=== PATIENT | male | born 1955 | race American Indian/Alaskan Native ===

== ENCOUNTER 2017-11-18 22:59 | Emergency (ER) | payer MEDICAID, OTHER ==
[2017-11-18] MEDS ORDERED: Ketorolac 30 MG/ML SDV IM ONE (23:24)
[2017-11-19] MEDS ORDERED: Morphine 4 MG/ML Syringe IVPUSH ONE (01:06)
[2017-11-19] MEDS ORDERED: Ondansetron 4 MG/2 ML SDV IV ONE (01:06)
[2017-11-19] MEDS ORDERED: Acetaminophen/HYDROcodone 325-5 MG Tab PO ONE (01:14)
--- NOTE | 2017-11-20 11:08 | ER ---
SUBJECTIVE: The patient is a 62-year-old male who comes in because of some scrotal swelling over the last day or so. He states he woke up with it in the middle of the night and has gotten a little worse today. He has been laying morro and then wearing tight pants and doing quite a bit stuff over the last few days. He denies any dysuria, hematuria, bowel changes, melena, hematochezia, fever, chills, trauma, or abdominal pain. Some mild discomfort along his scrotum, mostly the left testicle area. He denies any other issues. He did take some naproxen by earlier today. PAST MEDICAL HISTORY: Significant for hyperlipidemia, hypertension, prostate disorder, and diabetes, type 2. CURRENT MEDICATIONS: Include: 1. Aspirin 81 mg p.o. daily. 2. Finasteride 5 mg p.o. daily. 3. Lisinopril 10 mg p.o. daily. 4. Naproxen 500 mg p.o. b.i.d. p.r.n. 5. Ditropan XL 10 mg p.o. daily. 6. Amlodipine 10 mg p.o. daily. 7. Lipitor 10 mg p.o. daily. ALLERGIES: He is not allergic to any known medications. SOCIAL HISTORY: He has been smoking for 15 years cigarettes. He does use alcohol daily. No other substance abuse. REVIEW OF SYSTEMS: No fever, chills, chest pain, shortness of breath, abdominal pain, nausea, vomiting, bowel or bladder changes, melena, or hematochezia. No trauma. Please see HPI. PHYSICAL EXAMINATION: Vital Signs: Stable. He is afebrile. General: Pleasant. Normal gait. He is very interactive. Appears in no distress. No respiratory distress. No jaundice. HEENT: Normocephalic and atraumatic. Neck: Unremarkable. Chest: Clear. Cardiovascular: RRR. Abdomen: Soft and benign. Genitourinary: Does show some nonspecific scrotal swelling. The left testicle is mildly more swollen than the right. Does not appear to be torsed. No cellulitis. No abscesses. No bruising or other signs of trauma. LABORATORY AND DIAGNOSTIC DATA: Urinalysis did not show any infection. An ultrasound of his scrotum does show hematoma above the left scrotum, probably traumatic in nature, although the patient does not recall any trauma. There is no infection, signs of abscess or process. ASSESSMENT: Mild scrotal swelling with left testicular hematoma. PLAN: I advised the patient to lie low over the next couple days, allow swelling to reabsorb, no heavy lifting, follow along. Do not wear any tight or constricting clothing. Follow up with his PCP in clinic as needed. [facility] /[id number]
== END 2017-11-19 02:07 | disposition home or self-care (01) ==
LOC: DL.ED 22:59
DX: S30.22XA Contusion of scrotum and testes, initial encounter (principal); F17.210 Nicotine dependence, cigarettes, uncomplicated; Z79.82 Long term (current) use of aspirin; Z79.899 Other long term (current) drug therapy; X58.XXXA Exposure to other specified factors, initial encounter
CPT/HCPCS: 76870; 81001; 93975; 96372; 99284; A9270; J1885

== ENCOUNTER 2018-01-01 21:54 | Emergency (ER) | payer MEDICAID, OTHER ==
--- NOTE | 2018-01-02 00:04 | EDM.PDOC ---
ED HPI GENERAL MEDICAL PROBLEM - General Chief Complaint: Head Injury Stated Complaint: [id number] CONCERN ABOUT A CONCUSSION Time Seen by Provider: 01/01/18 22:00 Source of Information: Reports: Patient History Limitations: Reports: No Limitations - History of Present Illness INITIAL COMMENTS - FREE TEXT/NARRATIVE: States worried that may have concussion. Reports hitting back of head on with trunk of car getting tools out of back. Denied loss of consciousness. Reports had not really thought about being struck in head until Sunday and noted pain to back of head when trying to lie flat. Mild neck discomfort No weakness, tremor or loss of sensation to upper or lower. Admits anxious and sleeping poorly. Headache Pain Score (Numeric/FACES): 9 - Related Data Allergies Allergy/AdvReac Type Severity Reaction Status Date / Time No Known Allergies Allergy Verified 01/01/18 22:01 Home Meds: Home Meds Aspirin [Halfprin] 81 mg PO DAILY 11/18/17 [History] Finasteride 5 mg PO DAILY 11/18/17 [History] Lisinopril 10 mg PO DAILY 11/18/17 [History] Naproxen 500 mg PO BID PRN 11/18/17 [History] Oxybutynin Chloride [Ditropan Xl] 10 mg PO DAILY 11/18/17 [History] amLODIPine Besylate [Amlodipine Besylate] 10 mg PO DAILY 11/18/17 [History] atorvaSTATin [Lipitor] 10 mg PO DAILY 11/18/17 [History] Past Medical History Cardiovascular History: Reports: High Cholesterol, Hypertension Genitourinary History: Reports: Prostate Disorder Endocrine/Metabolic History: Reports: Diabetes, Type II - Past Surgical History Musculoskeletal Surgical History: Reports: Shoulder Surgery, Other (See Below) Other Musculoskeletal Surgeries/Procedures:: left wrist, right ankle surgery Social & Family History - Tobacco Use Smoking Status *Q: Current Every Day Smoker Years of Tobacco use: 17 Packs/Tins Daily: 0.5 Second Hand Smoke Exposure: Yes - Caffeine Use Caffeine Use: Reports: Coffee, Tea - Recreational Drug Use Recreational Drug Use: No ED ROS GENERAL - Review of Systems Review Of Systems: ROS reveals no pertinent complaints other than HPI. ED EXAM, HEAD INJURY - Physical Exam Exam: See Below Exam Limited By: No Limitations General Appearance: Alert, No Apparent Distress, Anxious Head: Atraumatic, Normocephalic, Scalp Tenderness (occipital) Nexus Criteria: No: Posterior, Midline Cervical Tenderness, Evidence of Intoxication, Altered Level of Consciousness, Focal Neurological Deficit Eyes: Bilateral Eye: EOMI Ears: Normal External Exam, Normal TMs. No: Canal Blood, TM Blood, TM Fluid Nose: Normal Inspection Throat/Mouth: Normal Inspection, Normal Lips Neck: Tender Lateral. No: Limited Range of Motion, Spinous Processes Tender, Tender Midline Respiratory: No Respiratory Distress, Lungs Clear, Normal Breath Sounds Cardiovascular: Normal Peripheral Pulses, Regular Rate, Rhythm GI/Abdominal Exam: Normal Bowel Sounds, Soft Rectal (Males) Exam: Normal Exam Extremities: Normal Inspection, Normal Range of Motion Neurologic: No Motor/Sensory Deficits, Alert, Oriented x 3. No: Motor Weakness , Sensory Deficit Skin: Normal Color, Warm/Dry - John Coma Score Best Eye Response (John): (4) Open Spontaneously Best Verbal Response ([place]): (5) Oriented Best Motor Response (John): (6) Obeys Commands Course - Vital Signs Last Recorded V/S: Last Vital Signs Temp 98.8 F 01/01/18 21:57 Pulse 107 H 01/01/18 21:57 Resp 18 01/01/18 21:57 BP 174/70 H 01/01/18 21:57 Pulse Ox 99 01/01/18 21:57 - Radiology Interpretation Free Text/Narrative:: head and cervical negative for acute process, Departure - Departure Time of Disposition: 23:57 Disposition: Home, Self-Care 01 Condition: Good Clinical Impression: Contusion of occipital region of scalp Qualifiers: Encounter type: initial encounter Qualified Code(s): S00.03XA - Contusion of scalp, initial encounter Cervical muscle strain Qualifiers: Encounter type: initial encounter Qualified Code(s): S16.1XXA - Strain of muscle, fascia and tendon at neck level, initial encounter Cervical spondylosis Qualifiers: Spinal osteoarthritis complication: unspecified spinal osteoarthritis Qualified Code(s): M47.812 - Spondylosis without myelopathy or radiculopathy, cervical region - Discharge Information Instructions: Head Injury, Adult, [id number] Referrals: Jorge Nava [Primary Care Provider] - Forms: ED Department Discharge Additional Instructions: rest tylenol or ibuprofen for discomfort follow up with primary care if not improving
== END 2018-01-02 00:06 | disposition home or self-care (01) ==
LOC: DL.ED 21:54
DX: S00.03XA Contusion of scalp, initial encounter (principal); S16.1XXA Strain of muscle, fascia and tendon at neck level, initial encounter; M47.812 Spondylosis without myelopathy or radiculopathy, cervical region; F17.210 Nicotine dependence, cigarettes, uncomplicated; E11.9 Type 2 diabetes mellitus without complications; Z79.899 Other long term (current) drug therapy; Z79.82 Long term (current) use of aspirin; W22.8XXA Striking against or struck by other objects, initial encounter
CPT/HCPCS: 70450; 72125; 99283

== ENCOUNTER 2020-03-23 16:19 | Emergency (ER) | payer MEDICAID ==
--- NOTE | 2020-03-23 16:20 | EDM.PDOC ---
ED HPI GENERAL MEDICAL PROBLEM - General Chief Complaint: Genitourinary Problem Stated Complaint: [place] AM Time Seen by Provider: 03/23/20 16:20 Source of Information: Reports: Patient, EMS, Family (sister), Old Records, Provider, RN, RN Notes Reviewed History Limitations: Reports: No Limitations - History of Present Illness INITIAL COMMENTS - FREE TEXT/NARRATIVE: Pt arrives from [facility] by ambulance sent by [facility] with report of dysuria, and right testicular redness and swelling x1 week. Pt denies abdominal pain, fever, or chills. He admits to suprapubic pressure and mild B/L flank pain. The clinic provider reported the pt had a WBC of 34,000 with no reference to pt's past or baseline WBC. No old records or labs are found here at this hospital and the clinic was closed without an ion implant machine operator provider by the time the pt arrived to the ER. Pt states he otherwise feels well. Pt's sister called to caution that the pt is a chronic alcohol drinker. Onset: Gradual Duration: Week(s): (1) Location: Reports: Other (Right testicle) Quality: Reports: Ache Severity: Moderate Improves with: Reports: None Worsens with: Reports: Movement Associated Symptoms: Reports: No Other Symptoms Right Scrotum Pain Score (Numeric/FACES): 4 - Related Data Allergies Allergy/AdvReac Type Severity Reaction Status Date / Time No Known Allergies Allergy Verified 03/23/20 16:32 Home Meds: Home Meds Aspirin [Halfprin] 81 mg PO DAILY 11/18/17 [History] Finasteride 5 mg PO DAILY 11/18/17 [History] Lisinopril 10 mg PO DAILY 11/18/17 [History] Naproxen 500 mg PO BID PRN 11/18/17 [History] Oxybutynin Chloride [Ditropan Xl] 10 mg PO DAILY 11/18/17 [History] amLODIPine Besylate [Amlodipine Besylate] 10 mg PO DAILY 11/18/17 [History] atorvaSTATin [Lipitor] 10 mg PO DAILY 11/18/17 [History] Thiamine HCl [Vitamin B-1] 03/23/20 [History] Past Medical History HEENT History: Reports: Impaired Vision Cardiovascular History: Reports: High Cholesterol, Hypertension Genitourinary History: Reports: Prostate Disorder Musculoskeletal History: Reports: Osteoarthritis, Other (See Below) (chronic right shoulder pain) Psychiatric History: Reports: Addiction (alcohol) Endocrine/Metabolic History: Reports: Diabetes, Type II - Past Surgical History Musculoskeletal Surgical History: Reports: Shoulder Surgery, Other (See Below) Other Musculoskeletal Surgeries/Procedures:: left wrist, right ankle surgery Social & Family History - Family History Family Medical History: Unobtainable - Caffeine Use Caffeine Use: Reports: Coffee, Tea - Alcohol Use Alcohol Use History: Yes - Living Situation & Occupation Living situation: Reports: with Family Occupation: Unemployed ED ROS GENERAL - Review of Systems Review Of Systems: Comprehensive ROS is negative, except as noted in HPI. ED EXAM, GENERAL - Physical Exam Exam: See Below Exam Limited By: No Limitations General Appearance: Alert, WD/WN, No Apparent Distress Nose: Normal Inspection Throat/Mouth: Normal Inspection, Normal Lips, Normal Voice, No Airway Compromise Head: Atraumatic, Normocephalic Neck: Normal Inspection, Supple, Non-Tender, Full Range of Motion Respiratory/Chest: No Respiratory Distress, Lungs Clear, Normal Breath Sounds, No Accessory Muscle Use, Chest Non-Tender Cardiovascular: Normal Peripheral Pulses, Regular Rate, Rhythm, No Edema, No Murmur GI/Abdominal: Soft, No Organomegaly, No Distention, No Abnormal Bruit, No Mass, Tender (Mild suprapubic discomfort to palpation). No: Guarding, Rigid, Rebound (Male) Exam: Inguinal Lymphadenopathy (Right), Scrotum Tenderness (R), Testicular Tenderness (R) (with erythema), Other (Uncirc. penis without tenderness, discharge, swelling, or lesions.). No: Penile Lesions, Urethral Discharge Rectal (Males) Exam: Deferred Back Exam: Normal Inspection, Full Range of Motion. No: CVA Tenderness (L), CVA Tenderness (R) Extremities: Normal Inspection, Normal Range of Motion, Non-Tender, Normal Capillary Refill, No Pedal Edema Neurological: Alert, Oriented, CN II-XII Intact, Normal Cognition, Normal Gait, No Motor/Sensory Deficits Psychiatric: Normal Mood Skin Exam: Warm, Dry, Intact Course - Vital Signs Last Recorded V/S: Last Vital Signs Temp 97.2 F 03/23/20 16:29 Pulse 100 03/23/20 16:29 Resp 18 03/23/20 16:29 BP 110/56 L 03/23/20 16:29 Pulse Ox 100 09/01/20 16:29 - Orders/Labs/Meds Orders: Active Orders 24 hr Category Date Time Status Peripheral IV Care [RC] . DIRECTED Care 03/23/20 16:21 Active CULTURE BLOOD [BC] Stat Lab 03/23/20 16:31 Received CULTURE BLOOD [BC] Stat Lab 03/23/20 16:38 Results DRUG SCREEN URINE BIORAD [URCHEM] Stat Lab 03/23/20 16:21 Ordered UA RFX RAD AND CULT IF INDIC [URIN] Stat Lab 03/23/20 16:21 Ordered Sodium Chloride 0.9% [Normal Saline] 1,000 ml Med 03/23/20 18:08 Active IV .BOLUS Sodium Chloride 0.9% [Saline Flush] Med 03/23/20 16:21 Active 10 ml FLUSH ASDIRECTED PRN Vancomycin 1 gm Med 03/23/20 18:12 Active Sodium Chloride 0.9% [Normal Saline] 250 ml IV ONETIME Blood Culture x2 Reflex Set [OM.PC] Stat Oth 03/23/20 16:21 Ordered Peripheral IV Insertion Adult [OM.PC] Stat Oth 03/23/20 16:21 Ordered Medication Orders Sodium Chloride (Normal Saline) 1,000 mls @ 999 mls/hr IV .BOLUS ONE Stop: 03/23/20 19:08 Vancomycin HCl 1 gm/ Sodium (Chloride) 250 mls @ 167 mls/hr IV ONETIME ONE Stop: 03/23/20 19:41 Sodium Chloride (Saline Flush) 10 ml FLUSH ASDIRECTED PRN PRN Reason: Keep Vein Open Last Admin: 03/23/20 16:28 Dose: 10 ml Documented by: BRANDON Labs: Laboratory Tests 03/23/20 03/23/20 03/23/20 Range/Units 16:31 16:31 16:31 WBC 31.2 H* (5.0-10.0) 10^3/uL RBC 3.63 L (4.6-6.2) 10^6/uL Hgb 11.6 L (14.0-18.0) g/dL Hct 34.6 L (40.0-54.0) % MCV 95.3 (80-100) fL MCH 32.0 (27.0-34.0) pg MCHC 33.5 (33.0-35.0) g/dL Plt Count 476 H (150-450) 10^3/uL Neut % (Auto) 92.5 H (42.2-75.2) % Lymph % (Auto) 3.9 L (20.5-50.1) % [place] % (Auto) 3.2 (2-8) % Eos % (Auto) 0.2 L (1.0-3.0) % Baso % (Auto) 0.2 (0.0-1.0) % Add Manual Diff Yes Neutrophils % (Manual) 81 H (42-75) % Band Neutrophils % 11 % Lymphocytes % (Manual) 4 L (20-50) % Monocytes % (Manual) 3 (2-8) % Eosinophils % (Manual) 1 (1-3) % Sodium 132 L (136-145) mmol/L Potassium 4.5 (3.5-5.1) mmol/L Chloride 101 (98-107) mmol/L Carbon Dioxide 21 (21-32) mmol/L Anion Gap 14.5 H (7-13) mEq/L BUN 56 H (7-18) mg/dL Creatinine 4.46 H (0.70-1.30) mg/dL Est Cr Clr Drug Dosing 15.85 mL/min Estimated GFR (MDRD) 13 BUN/Creatinine Ratio 12.6 (No establ ref range) Glucose 115 H (74-99) mg/dL Lactic Acid 0.8 (0.4-2.0) mmol/L Calcium 8.3 L (8.5-10.1) mg/dL Total Bilirubin 1.4 H (0.2-1.0) mg/dL AST 36 (15-37) U/L ALT 55 (16-63) U/L Alkaline Phosphatase 207 H (46-116) U/L C-Reactive Protein 28.3 H (0.0-0.9) mg/dL Total Protein 7.3 (6.4-8.2) g/dL Albumin 1.8 L (3.4-5.0) g/dL Globulin 5.5 Albumin/Globulin Ratio 0.33 Amylase 31 (25-115) U/L Lipase 74 (73-393) U/L Ethyl Alcohol < 3 (0) mg/dL Meds: Medications Generic Name Dose Route Start Last Admin Trade Name Freq PRN Reason Stop Dose Admin Sodium Chloride 1,000 mls @ 999 mls/hr 03/23/20 18:08 Normal Saline IV 03/23/20 19:08 .BOLUS ONE Vancomycin HCl 1 gm/ Sodium 250 mls @ 167 mls/hr 03/23/20 18:12 Chloride IV 03/23/20 19:41 ONETIME ONE Sodium Chloride 10 ml 03/23/20 16:21 03/23/20 16:28 Saline Flush FLUSH 10 ml ASDIRECTED PRN Administration Keep Vein Open Discontinued Medications Generic Name Dose Route Start Last Admin Trade Name Freq PRN Reason Stop Dose Admin Sodium Chloride 1,000 mls @ 999 mls/hr 03/23/20 16:21 03/23/20 16:26 Normal Saline IV 03/23/20 17:21 999 mls/hr .BOLUS ONE Administration Ceftriaxone Sodium 1 gm/ 50 mls @ 100 mls/hr 03/23/20 17:16 03/23/20 17:31 Sodium Chloride IV 03/23/20 17:45 100 mls/hr ONETIME ONE Administration - Radiology Interpretation Free Text/Narrative:: US not available at this facility today. Departure - Departure Time of Disposition: 18:21 Disposition: DC/Tfer to Acute Hospital 02 Condition: Fair, Undetermined Clinical Impression: Orchitis, right, GEORGE (acute kidney injury) UTI (urinary tract infection) Qualifiers: Urinary tract infection type: site unspecified Hematuria presence: with hematuria Qualified Code(s): N39.0 - Urinary tract infection, site not specified; R31.9 - Hematuria, unspecified Leukocytosis, unspecified Qualifiers: Leukocytosis type: unspecified Qualified Code(s): D72.829 - Elevated white blo od cell count, unspecified - Discharge Information *PRESCRIPTION DRUG MONITORING PROGRAM REVIEWED*: Not Applicable *COPY OF PRESCRIPTION DRUG MONITORING REPORT IN PATIENT ARNAV: Not Applicable Forms: ED Department Discharge, Interfacility Transfer [facility] Sepsis Event Note (ED) - Focused Exam Vital Signs: Vital Signs Temp Pulse Resp BP Pulse Ox 03/23/20 16:29 97.2 F 100 18 110/56 L 100 - My Orders Last 24 Hours: My Active Orders 03/23/20 16:21 Peripheral IV Care [RC] . DIRECTED DRUG SCREEN URINE BIORAD [URCHEM] Stat UA RFX RAD AND CULT IF INDIC [URIN] Stat Sodium Chloride 0.9% [Saline Flush] 10 ml FLUSH ASDIRECTED PRN Blood Culture x2 Reflex Set [OM.PC] Stat Peripheral IV Insertion Adult [OM.PC] Stat 03/23/20 16:31 CULTURE BLOOD [BC] Stat 03/23/20 16:38 CULTURE BLOOD [BC] Stat 03/23/20 18:08 Sodium Chloride 0.9% [Normal Saline] 1,000 ml IV .BOLUS 03/23/20 18:12 Vancomycin 1 gm Sodium Chloride 0.9% [Normal Saline] 250 ml IV ONETIME - Assessment/Plan Last 24 Hours: My Active Orders 03/23/20 16:21 Peripheral IV Care [RC] . DIRECTED DRUG SCREEN URINE BIORAD [URCHEM] Stat UA RFX RAD AND CULT IF INDIC [URIN] Stat Sodium Chloride 0.9% [Saline Flush] 10 ml FLUSH ASDIRECTED PRN Blood Culture x2 Reflex Set [OM.PC] Stat Peripheral IV Insertion Adult [OM.PC] Stat 03/23/20 16:31 CULTURE BLOOD [BC] Stat 03/23/20 16:38 CULTURE BLOOD [BC] Stat 03/23/20 18:08 Sodium Chloride 0.9% [Normal Saline] 1,000 ml IV .BOLUS 03/23/20 18:12 Vancomycin 1 gm Sodium Chloride 0.9% [Normal Saline] 250 ml IV ONETIME
[2020-03-23] MEDS ORDERED: Sodium Chloride 0.9% 10 ML Syringe FLUSH PRN (16:21)
[2020-03-23] MEDS ORDERED: Sodium Chloride 0.9% 1,000 ML IV ONE ×2 (16:21→18:08)
[2020-03-23] MEDS ORDERED: cefTRIAXone 1 GM in Sodium Chloride 0.9% 50 ML IV ONE (17:16)
[2020-03-23 17:22] LABS: ANION GAP 14.5 mEq/L (7-13); CHLORIDE,CL 101 mmol/L (98-107); SODIUM,NA 132 mmol/L (136-145)
== END 2020-03-23 18:15 ==
LOC: DL.ED 16:19
DX: N45.2 Orchitis (principal); N17.9 Acute kidney failure, unspecified; N39.0 Urinary tract infection, site not specified; R31.9 Hematuria, unspecified; D72.829 Elevated white blood cell count, unspecified; E11.9 Type 2 diabetes mellitus without complications; M19.90 Unspecified osteoarthritis, unspecified site; E78.00 Pure hypercholesterolemia, unspecified; I10 Essential (primary) hypertension; Z79.82 Long term (current) use of aspirin; Z79.899 Other long term (current) drug therapy
CPT/HCPCS: 36415; 80053; 80307; 82150; 83605; 83690; 85025; 86140; 87040; 87077; 87186; 96361; 96374; 96375; 99285; J0696; J3370; J7030; J7050; 99284

== ENCOUNTER 2020-12-23 06:46 | Emergency (ER) | payer MEDICAID, OTHER ==
--- NOTE | 2020-12-23 07:08 | EDM.PDOC ---
"ED HPI GENERAL MEDICAL PROBLEM - General Chief Complaint: Drug or Alcohol Abuse Stated Complaint: [id number] CONCUSSION HIT HEAD ON METAL OF BED Time Seen by Provider: 12/23/20 07:00 Source of Information: Reports: Patient, Old Records, RN, RN Notes Reviewed History Limitations: Reports: No Limitations - History of Present Illness INITIAL COMMENTS - FREE TEXT/NARRATIVE: Pt presents to ER from home by POV with c/o a posterior headache for several days. Pt states that about 5 days ago he struck the back of his head on a metal bed rail and nearly knocked himself out. Pt noted to have a tremor, and when asked he admits the he had several weeks of heavy daily alcohol consumption. He states he abruptly quit drinking alcohol about 3 or 4 day ago and now is having withdrawals. He denies seizure or hallucinations. Admits to nausea, vomiting, tremor, and intermittent sweating. Pt's states she has a court date at [place] to petition the court to send the pt to alcohol treatment. Onset: Unknown/Unsure Duration: Constant Location: Reports: Head, Generalized Quality: Reports: Ache, Sharp Severity: Severe Improves with: Reports: None Worsens with: Reports: None Associated Symptoms: Reports: No Other Symptoms Headache Pain Score (Numeric/FACES): 6 - Related Data Allergies Allergy/AdvReac Type Severity Reaction Status Date / Time No Known Allergies Allergy Verified 12/23/20 06:58 Home Meds: Home Meds Aspirin [Halfprin] 81 mg PO DAILY 11/18/17 [History] Finasteride 5 mg PO DAILY 11/18/17 [History] Lisinopril 10 mg PO DAILY 11/18/17 [History] Naproxen 500 mg PO BID PRN 11/18/17 [History] Oxybutynin Chloride [Ditropan Xl] 10 mg PO DAILY 11/18/17 [History] amLODIPine Besylate [Amlodipine Besylate] 10 mg PO DAILY 11/18/17 [History] atorvaSTATin [Lipitor] 10 mg PO DAILY 11/18/17 [History] Thiamine HCl [Vitamin B-1] 03/23/20 [History] Past Medical History HEENT History: Reports: Impaired Vision Cardiovascular History: Reports: High Cholesterol, Hypertension Genitourinary History: Reports: Prostate Disorder Musculoskeletal History: Reports: Osteoarthritis, Other (See Below) (chronic right shoulder pain) Psychiatric History: Reports: Addiction (alcohol) Endocrine/Metabolic History: Reports: Diabetes, Type II - Past Surgical History Musculoskeletal Surgical History: Reports: Shoulder Surgery, Other (See Below) Other Musculoskeletal Surgeries/Procedures:: left wrist, right ankle surgery Social & Family History - Family History Family Medical History: Unobtainable - Caffeine Use Caffeine Use: Reports: Coffee, Tea - Alcohol Use Alcohol Use History: Yes Date of Last Drink: 12/19/20 Alcohol Use Frequency: Binges - Living Situation & Occupation Living situation: Reports: with Family Occupation: Unemployed ED ROS GENERAL - Review of Systems Review Of Systems: Comprehensive ROS is negative, except as noted in HPI. ED EXAM, GENERAL - Physical Exam Exam: See Below Exam Limited By: No Limitations General Appearance: Alert, No Apparent Distress, Other (Unkept appearance) Eye Exam: Bilateral Eye: EOMI, PERRL Ears: Normal External Exam, Hearing Grossly Normal Nose: Normal Inspection, No Blood Throat/Mouth: Normal Lips, Normal Voice, No Airway Compromise, Other (Very dry oral mucosa) Head: Atraumatic, Normocephalic Neck: Normal Inspection, Non-Tender, Full Range of Motion Respiratory/Chest: No Respiratory Distress, Lungs Clear, No Accessory Muscle Use, Chest Non-Tender, Decreased Breath Sounds Cardiovascular: Regular Rate, Rhythm, No Edema, Tachycardia GI/Abdominal: Normal Bowel Sounds, Soft, Non-Tender, Hepatomegaly. No: Guarding, Rigid, Rebound Back Exam: Normal Inspection, Full Range of Motion Extremities: Normal Inspection, Normal Range of Motion, Non-Tender, No Pedal Edema Neurological: Alert, Oriented, CN II-XII Intact, Normal Cognition, Other (B/L upper extremity tremor) Psychiatric: Normal Mood, Flat Affect Skin Exam: Warm, Dry, Intact, Normal Color #1 Interpretation EKG Date: 12/23/20 Time: 07:35 Rhythm: Other (Sinus Tach) Rate (Beats/Min): 102 Yale: LAD-Left Yale Deviation P-Wave: Present QRS: RBBB ST-T: Normal QT: Normal Comparison: NA - No Prior EKG Course - Vital Signs Last Recorded V/S: Last Vital Signs Temp 98.0 F 12/23/20 06:59 Pulse 120 H 12/23/20 06:59 Resp 20 12/23/20 06:59 BP 119/55 L 12/23/20 06:59 Pulse Ox 96 12/23/20 06:59 - Orders/Labs/Meds Orders: Active Orders 24 hr Category Date Time Status EKG 12 Lead [EKG Documentation Completion] [RC] STAT Care 12/23/20 07:08 Active Peripheral IV Care [RC] . DIRECTED Care 12/23/20 07:09 Active CULTURE URINE [RM] Stat Lab 12/23/20 07:55 Received Magnesium Sulfate/Water [Magnesium Sulfate in Water 2 Med 12/23/20 08:15 Active GM/50 ML] 2 gm Premix Bag 1 bag IV ONETIME Sodium Chloride 0.9% [Saline Flush] Med 12/23/20 07:09 Active 10 ml FLUSH ASDIRECTED PRN cefTRIAXone [Rocephin] 2 gm Med 12/23/20 08:26 Active Sodium Chloride 0.9% [Normal Saline] 100 ml IV ONETIME Peripheral IV Insertion Adult [OM.PC] Stat Oth 12/23/20 07:09 Ordered Medication Orders Magnesium Sulfate 2 gm/ Premix 50 mls @ 50 mls/hr IV ONETIME ONE Stop: 12/23/20 09:14 Last Admin: 12/23/20 08:24 Dose: 50 mls/hr Documented by: DAVID Ceftriaxone Sodium 2 gm/ (Sodium Chloride) 100 mls @ 200 mls/hr IV ONETIME ONE Stop: 12/23/20 08:55 Sodium Chloride (Sodium Chloride 0.9% 10 Ml Syringe) 10 ml FLUSH ASDIRECTED PRN PRN Reason: Keep Vein Open Last Admin: 12/23/20 07:26 Dose: 10 ml Documented by: DAVID Labs: Laboratory Tests 12/23/20 12/23/20 12/23/20 Range/Units 07:13 07:13 07:13 WBC 6.6 (5.0-10.0) 10^3/uL RBC 3.62 L (4.6-6.2) 10^6/uL Hgb 11.7 L (14.0-18.0) g/dL Hct 33.1 L (40.0-54.0) % MCV 91.4 D (80-100) fL MCH 32.3 (27.0-34.0) pg MCHC 35.3 H (33.0-35.0) g/dL Plt Count 65 L D (150-450) 10^3/uL Neut % (Auto) 77.9 H (42.2-75.2) % Lymph % (Auto) 12.4 L (20.5-50.1) % [place] % (Auto) 8.9 H (2-8) % Eos % (Auto) 0.2 L (1.0-3.0) % Baso % (Auto) 0.6 (0.0-1.0) % PT 11.1 (9.0-12.0) SEC INR 1.1 (0.9-1.2) APTT (22.0-34.0) SEC Sodium 131 L (136-145) mmol/L Potassium 3.6 (3.5-5.1) mmol/L Chloride 92 L (98-107) mmol/L Carbon Dioxide 22 (21-32) mmol/L Anion Gap 20.6 H (7-13) mEq/L BUN 16 D (7-18) mg/dL Creatinine 1.75 H D (0.70-1.30) mg/dL Est Cr Clr Drug Dosing 39.87 mL/min Estimated GFR (MDRD) 39 BUN/Creatinine Ratio 9.1 (No establ ref range) Glucose 167 H (70-99) mg/dL Calcium 9.3 (8.5-10.1) mg/dL Magnesium 1.4 L (1.8-2.4) mg/dL Total Bilirubin 1.7 H (0.2-1.0) mg/dL AST 117 H (15-37) U/L ALT 87 H (16-63) U/L Alkaline Phosphatase 80 (46-116) U/L Troponin I High Sens 26 (<=76) pg/mL Total Protein 7.5 (6.4-8.2) g/dL Albumin 3.9 (3.4-5.0) g/dL Globulin 3.6 Albumin/Globulin Ratio 1.1 Amylase 85 (25-115) U/L Lipase 475 H (73-393) U/L Urine Color (YELLOW) Urine Appearance (CLEAR) Urine pH (5.0-9.0) Ur Specific [place] (1.005-1.030) Urine Protein (NEGATIVE) Urine Glucose (UA) (NEGATIVE) Urine Ketones (NEGATIVE) Urine Occult Blood (NEGATIVE) Urine Nitrite (NEGATIVE) Urine Bilirubin (NEGATIVE) Urine Urobilinogen (0.2-1.0) mg/dL Ur Leukocyte Esterase (NEGATIVE) Urine RBC /HPF Urine WBC (0-5/HPF) /HPF Ur Epithelial Cells (NOT SEEN) /HPF Amorphous Sediment (NOT SEEN) /HPF Urine Bacteria (0-FEW/HPF) /HPF Fine Granular Casts (NOT SEEN) /LPF Urine Mucus (NOT SEEN) /LPF Urine Opiates Screen (NEGATIVE) Ur Oxycodone Screen (NEGATIVE) Urine Methadone Screen (NEGATIVE) Ur Barbiturates Screen (NEGATIVE) U Tricyclic Antidepress (NEGATIVE) Ur Phencyclidine Scrn (NEGATIVE) Ur Amphetamine Screen (NEGATIVE) U Methamphetamines Scrn (NEGATIVE) Urine MDMA Screen (NEGATIVE) U Benzodiazepines Scrn (NEGATIVE) Urine Cocaine Screen (NEGATIVE) U Marijuana (THC) Screen (NEGATIVE) Ethyl Alcohol < 3 (0) mg/dL 12/23/20 12/23/20 12/23/20 Range/Units 07:13 07:55 07:55 WBC (5.0-10.0) 10^3/uL RBC (4.6-6.2) 10^6/uL Hgb (14.0-18.0) g/dL Hct (40.0-54.0) % MCV (80-100) fL MCH (27.0-34.0) pg MCHC (33.0-35.0) g/dL Plt Count (150-450) 10^3/uL Neut % (Auto) (42.2-75.2) % Lymph % (Auto) (20.5-50.1) % [place] % (Auto) (2-8) % Eos % (Auto) (1.0-3.0) % Baso % (Auto) (0.0-1.0) % PT (9.0-12.0) SEC INR (0.9-1.2) APTT 23.9 (22.0-34.0) SEC Sodium (136-145) mmol/L Potassium (3.5-5.1) mmol/L Chloride (98-107) mmol/L Carbon Dioxide (21-32) mmol/L Anion Gap (7-13) mEq/L BUN (7-18) mg/dL Creatinine (0.70-1.30) mg/dL Est Cr Clr Drug Dosing mL/min Estimated GFR (MDRD) BUN/Creatinine Ratio (No establ ref range) Glucose (70-99) mg/dL Calcium (8.5-10.1) mg/dL Magnesium (1.8-2.4) mg/dL Total Bilirubin (0.2-1.0) mg/dL AST (15-37) U/L ALT (16-63) U/L Alkaline Phosphatase (46-116) U/L Troponin I High Sens (<=76) pg/mL Total Protein (6.4-8.2) g/dL Albumin (3.4-5.0) g/dL Globulin Albumin/Globulin Ratio Amylase (25-115) U/L Lipase (73-393) U/L Urine Color Dark yellow (YELLOW) Urine Appearance Slightly cloudy (CLEAR) Urine pH 5.5 (5.0-9.0) Ur Specific [place] 1.020 (1.005-1.030) Urine Protein >=300 H (NEGATIVE) Urine Glucose (UA) Negative (NEGATIVE) Urine Ketones 15 H (NEGATIVE) Urine Occult Blood Large H (NEGATIVE) Urine Nitrite Positive H (NEGATIVE) Urine Bilirubin Small H (NEGATIVE) Urine Urobilinogen 1.0 (0.2-1.0) mg/dL Ur Leukocyte Esterase Small H (NEGATIVE) Urine RBC 5-10 H /HPF Urine WBC >100 H (0-5/HPF) /HPF Ur Epithelial Cells Rare (NOT SEEN) /HPF Amorphous Sediment Few (NOT SEEN) /HPF Urine Bacteria Many H (0-FEW/HPF) /HPF Fine Granular Casts Few H (NOT SEEN) /LPF Urine Mucus Rare (NOT SEEN) /LPF Urine Opiates Screen Negative (NEGATIVE) Ur Oxycodone Screen Negative (NEGATIVE) Urine Methadone Screen Negative (NEGATIVE) Ur Barbiturates Screen Negative (NEGATIVE) U Tricyclic Antidepress Negative (NEGATIVE) Ur Phencyclidine Scrn Negative (NEGATIVE) Ur Amphetamine Screen Negative (NEGATIVE) U Methamphetamines Scrn Negative (NEGATIVE) Urine MDMA Screen Negative (NEGATIVE) U Benzodiazepines Scrn Negative (NEGATIVE) Urine Cocaine Screen Negative (NEGATIVE) U Marijuana (THC) Screen Negative (NEGATIVE) Ethyl Alcohol (0) mg/dL Meds: Medications Generic Name Dose Route Start Last Admin Trade Name Freq PRN Reason Stop Dose Admin Magnesium Sulfate 2 gm/ Premix 50 mls @ 50 mls/hr 12/23/20 08:15 12/23/20 08:24 IV 12/23/20 09:14 50 mls/hr ONETIME ONE Administration Ceftriaxone Sodium 2 gm/ 100 mls @ 200 mls/hr 12/23/20 08:26 Sodium Chloride IV 12/23/20 08:55 ONETIME ONE Sodium Chloride 10 ml 12/23/20 07:09 12/23/20 07:26 Sodium Chloride 0.9% 10 Ml Syringe FLUSH 10 ml ASDIRECTED PRN Administration Keep Vein Open Discontinued Medications Generic Name Dose Route Start Last Admin Trade Name Freq PRN Reason Stop Dose Admin Multivitamins/Minerals 10 ml/ 1,011.2 mls @ 999 mls/hr 12/23/20 07:09 12/23/20 07:25 Thiamine HCl 100 mg/ Folic IV 12/23/20 08:09 999 mls/hr Acid 1 mg/ Lactated Ringer's .BOLUS ONE Administration Lorazepam 2 mg 12/23/20 07:09 12/23/20 07:25 Lorazepam 2 Mg/Ml Sdv IVPUSH 12/23/20 07:10 2 mg ONETIME ONE Administration Lorazepam 2 mg 12/23/20 08:26 Lorazepam 2 Mg/Ml Sdv IVPUSH 12/23/20 08:27 ONETIME ONE Ondansetron HCl 4 mg 12/23/20 07:09 12/23/20 07:25 Ondansetron 4 Mg/2 Ml Sdv IV 12/23/20 07:10 4 mg ONETIME ONE Administration - Radiology Interpretation Free Text/Narrative:: [facility] Final Radiology Report Call: [phone] assistance Online chat: [email or web address] Name: ARNOLD TURNER Age: 65Years M Date: 12/23/2020 SSN: -- : [id number] Study: CT HEAD WO CONT Requesting Physician: DL GIVENS Images: [id number] Addl Studies: Provided Clinical History: Head injury Contrast: Without Contrast Medium: Contrast Amount: Contrast Method: Page 1 of 2 PROCEDURE INFORMATION: Exam: CT Head Without Contrast Exam date and time: 12/23/2020 7:50 AM Age: 65 years old Clinical indication: Injury or trauma; Other: Hit head on bed; Blunt trauma (contusions or hematomas); Consciousness not specified; Additional info: Head injury TECHNIQUE: Imaging protocol: Computed tomography of the head without contrast. Radiation optimization: All CT scans at this facility use at least one of these dose optimization techniques: automated exposure control; mA and/or kV adjustment per patient size (includes targeted exams where dose is matched to clinical indication); or iterative reconstruction. COMPARISON: CT Head wo Cont 01/01/2018 10:33 PM FINDINGS: Brain: Age related brain involution is present. No acute intracranial hemorrhage, mass effect, midline shift, or brain herniation. Diffuse subcortical and periventricular white matter hypodensities are most in favor with chronic small vessel disease. Cerebral ventricles: There is ex vacuo ventriculomegaly. Paranasal sinuses: Visualized sinuses are unremarkable. No fluid levels. Mastoid air cells: Visualized mastoid air cells are well aerated. Vasculature: Intracranial atherosclerosis is present. Bones/joints: Comminuted nasal bone fracture is partially visualized. Soft tissues: Unremarkable. Other findings: No other acute skeletal pathology is appreciated. IMPRESSION: ARNOLD TURNER | Final Radiology Report CONFIDENTIALITY STATEMENT This report is intended only for use by the referring physician, and only in accordance with law. If you received this in error, call [phone]. Page 2 of 2 1. Partially visualized comminuted nasal bone fracture, this appears stable from the reference examination and is most probably chronic in etiology. Consider correlation with point tenderness. 2. Negative for acute intracranial pathology. Thank you for allowing us to participate in the care of your patient. Dictated and Authenticated by: Jonathan Lan MD 12/23/2020 8:17 AM Central Time ([place] & [place]) Departure - Departure Time of Disposition: 09:30 Disposition: Home, Self-Care 01 Condition: Fair Clinical Impression: Dehydration, Hypomagnesemia Alcohol withdrawal syndrome Qualifiers: Complication of substance-induced condition: uncomplicated Qualified Code(s): F10.230 - Alcohol dependence with withdrawal, uncomplicated Urinary tract infection Qualifiers: Urinary tract infection type: site unspecified Hematuria presence: with hematuria Qualified Code(s): N39.0 - Urinary tract infection, site not specified; R31.9 - Hematuria, unspecified - Discharge Information *PRESCRIPTION DRUG MONITORING PROGRAM REVIEWED*: No *COPY OF PRESCRIPTION DRUG MONITORING REPORT IN PATIENT ARNAV: No Instructions: Alcohol Withdrawal Syndrome, Urinary Tract Infection, Adult, [id number], Dehydration, Adult, [id number], Hypomagnesemia Forms: ED Department Discharge Additional Instructions: Rx: Lorazepam 1mg Rx: Cipro 500mg Drink plenty of water. Abstain from alcohol consumption. Follow up in clinic next week for recheck of blood and urine. Sepsis Event Note (ED) - Evaluation Sepsis Screening Result: No Definite Risk - Focused Exam Vital Signs: Vital Signs Temp Pulse Resp BP Pulse Ox 12/23/20 06:59 98.0 F 120 H 20 119/55 L 96 - My Orders Last 24 Hours: My Active Orders 12/23/20 07:08 EKG 12 Lead [EKG Documentation Completion] [RC] STAT 12/23/20 07:09 Peripheral IV Care [RC] . DIRECTED Sodium Chloride 0.9% [Saline Flush] 10 ml FLUSH ASDIRECTED PRN Peripheral IV Insertion Adult [OM.PC] Stat 12/23/20 07:55 CULTURE URINE [RM] Stat 12/23/20 08:15 Magnesium Sulfate/Water [Magnesium Sulfate in Water 2 GM/50 ML] 2 gm Premix Bag 1 bag IV ONETIME 12/23/20 08:26 cefTRIAXone [Rocephin] 2 gm Sodium Chloride 0.9% [Normal Saline] 100 ml IV ONETIME - Assessment/Plan Last 24 Hours: My Active Orders 12/23/20 07:08 EKG 12 Lead [EKG Documentation Completion] [RC] STAT 12/23/20 07:09 Peripheral IV Care [RC] . DIRECTED Sodium Chloride 0.9% [Saline Flush] 10 ml FLUSH ASDIRECTED PRN Peripheral IV Insertion Adult [OM.PC] Stat 12/23/20 07:55 CULTURE URINE [RM] Stat 12/23/20 08:15 Magnesium Sulfate/Water [Magnesium Sulfate in Water 2 GM/50 ML] 2 gm Premix Bag 1 bag IV ONETIME 12/23/20 08:26 cefTRIAXone [Rocephin] 2 gm Sodium Chloride 0.9% [Normal Saline] 100 ml IV ONETIME"
[2020-12-23] MEDS ORDERED: Sodium Chloride 0.9% 10 ML Syringe FLUSH PRN (07:09)
[2020-12-23] MEDS ORDERED: MVI, Adult with Vitamin K 10 ML, Thiamine 100 MG, Folic Acid 1 MG in Lactated Ringers 1... IV ONE ×4 (07:09)
[2020-12-23] MEDS ORDERED: LORazepam 2 MG/ML SDV IVPUSH ONE ×2 (07:09→08:26)
[2020-12-23] MEDS ORDERED: Ondansetron 4 MG/2 ML SDV IV ONE (07:09)
[2020-12-23 07:45] LABS: ANION GAP 20.6 mEq/L (7-13); CHLORIDE,CL 92 mmol/L (98-107); SODIUM,NA 131 mmol/L (136-145)
[2020-12-23] MEDS ORDERED: Magnesium Sulfate/Water 2 GM in Premix Bag 1 BAG IV ONE (08:15)
--- NOTE | 2020-12-23 08:17 | CT ---
PROCEDURE INFORMATION: Exam: CT Head Without Contrast Exam date and time: 12/23/2020 7:50 AM Age: 65 years old Clinical indication: Injury or trauma; Other: Hit head on bed; Blunt trauma (contusions or hematomas); Consciousness not specified; Additional info: Head injury TECHNIQUE: Imaging protocol: Computed tomography of the head without contrast. Radiation optimization: All CT scans at this facility use at least one of these dose optimization techniques: automated exposure control; mA and/or kV adjustment per patient size (includes targeted exams where dose is matched to clinical indication); or iterative reconstruction. COMPARISON: CT Head wo Cont 01/01/2018 10:33 PM FINDINGS: Brain: Age related brain involution is present. No acute intracranial hemorrhage, mass effect, midline shift, or brain herniation. Diffuse subcortical and periventricular white matter hypodensities are most in favor with chronic small vessel disease. Cerebral ventricles: There is ex vacuo ventriculomegaly. Paranasal sinuses: Visualized sinuses are unremarkable. No fluid levels. Mastoid air cells: Visualized mastoid air cells are well aerated. Vasculature: Intracranial atherosclerosis is present. Bones/joints: Comminuted nasal bone fracture is partially visualized. Soft tissues: Unremarkable. Other findings: No other acute skeletal pathology is appreciated. IMPRESSION: 1. Partially visualized comminuted nasal bone fracture, this appears stable from the reference examination and is most probably chronic in etiology. Consider correlation with point tenderness. 2. Negative for acute intracranial pathology.
[2020-12-23] MEDS ORDERED: cefTRIAXone 2 GM in Sodium Chloride 0.9% 100 ML IV ONE (08:26)
== END 2020-12-23 09:50 | disposition home or self-care (01) ==
LOC: DL.ED 06:46
DX: F10.230 Alcohol dependence with withdrawal, uncomplicated (principal); N39.0 Urinary tract infection, site not specified; E86.0 Dehydration; E83.42 Hypomagnesemia; R31.9 Hematuria, unspecified; E78.00 Pure hypercholesterolemia, unspecified; I10 Essential (primary) hypertension; E11.9 Type 2 diabetes mellitus without complications; Z79.82 Long term (current) use of aspirin; Z79.899 Other long term (current) drug therapy; Y90.0 Blood alcohol level of less than 20 mg/100 ml
CPT/HCPCS: 36415; 70450; 80053; 80305; 80307; 81001; 82150; 83690; 83735; 84484; 85025; 85610; 85730; 87086; 87088; 87186; 93005; 93010; 96365; 96367; 96375; 96376; 99284; 99285; J0696; J2060; J2405; J3411; J3475; J7120; J3490

== ENCOUNTER 2020-12-23 12:45 | Inpatient (IN) | payer MEDICAID, OTHER ==
--- NOTE | 2020-12-23 12:52 | EDM.PDOCBH ---
ED HPI GENERAL MEDICAL PROBLEM - General Chief Complaint: Drug or Alcohol Abuse Stated Complaint: HUMAN RESOURCE SAID TO COME Time Seen by Provider: 12/23/20 12:48 Source of Information: Reports: Patient, Old Records, RN, RN Notes Reviewed, Other (Vidya Holley, [facility]) History Limitations: Reports: No Limitations - History of Present Illness INITIAL COMMENTS - FREE TEXT/NARRATIVE: Pt seen here a few hours ago in ER for alcohol withdrawal. He was medically cleared to go to the [facility] for intake to the [facility] for alcohol treatment. While at [facility] his intake CIWA score was 36, so he was returned to the hospital to be admitted. Exam and diagnostics not repeated. See ER record from earlier today. - Related Data Allergies Allergy/AdvReac Type Severity Reaction Status Date / Time No Known Allergies Allergy Verified 12/23/20 06:58 Home Meds: Home Meds Aspirin [Halfprin] 81 mg PO DAILY 11/18/17 [History] Finasteride 5 mg PO DAILY 11/18/17 [History] Lisinopril 10 mg PO DAILY 11/18/17 [History] Naproxen 500 mg PO BID PRN 11/18/17 [History] Oxybutynin Chloride [Ditropan Xl] 10 mg PO DAILY 11/18/17 [History] amLODIPine Besylate [Amlodipine Besylate] 10 mg PO DAILY 11/18/17 [History] atorvaSTATin [Lipitor] 10 mg PO DAILY 11/18/17 [History] Thiamine HCl [Vitamin B-1] 03/23/20 [History] Past Medical History HEENT History: Reports: Impaired Vision Cardiovascular History: Reports: High Cholesterol, Hypertension Respiratory History: Reports: None Gastrointestinal History: Reports: None Genitourinary History: Reports: Prostate Disorder Musculoskeletal History: Reports: Osteoarthritis, Other (See Below) Neurological History: Reports: None Psychiatric History: Reports: Addiction Endocrine/Metabolic History: Reports: Diabetes, Type II Hematologic History: Reports: None Immunologic History: Reports: None Oncologic (Cancer) History: Reports: None Dermatologic History: Reports: None - Infectious Disease History Infectious Disease History: Reports: None - Past Surgical History Musculoskeletal Surgical History: Reports: Shoulder Surgery, Other (See Below) Other Musculoskeletal Surgeries/Procedures:: left wrist, right ankle surgery Social & Family History - Family History Family Medical History: Unobtainable - Caffeine Use Caffeine Use: Reports: Coffee - Living Situation & Occupation Living situation: Reports: with Family Occupation: Unemployed ED ROS GENERAL - Review of Systems Review Of Systems: Comprehensive ROS is negative, except as noted in HPI. ED EXAM, BEHAVIORAL HEALTH - Physical Exam Exam: Not Obtained Reason Not Obtained: See ER note from earlier today, this is a repeat visit for admission. Departure - Departure Time of Disposition: 12:51 (admitted to Dr. Fairchild) Disposition: Admitted As Inpatient 67 Condition: Fair Clinical Impression: Alcohol withdrawal delirium, Alcohol abuse, Hypomagnesemia UTI (urinary tract infection) Qualifiers: Urinary tract infection type: site unspecified Hematuria presence: with hematuria Qualified Code(s): N39.0 - Urinary tract infection, site not specified - Discharge Information Forms: ED Department Discharge
[2020-12-23] MEDS ORDERED: Sodium Chloride 0.9% 10 ML Syringe FLUSH PRN (14:01)
[2020-12-23] MEDS ORDERED: Ondansetron 4 MG/2 ML SDV IVPUSH PRN (14:01)
[2020-12-23] MEDS ORDERED: LORazepam 2 MG/ML SDV IV PRN (14:05)
[2020-12-23] MEDS ORDERED: Glucagon,Human Recombinant 1 MG Vial IM PRN (14:06)
[2020-12-23] MEDS ORDERED: 50% Dextrose in Water 50 ML Syringe IV PRN (14:06)
[2020-12-23 14:08] LABS: CORONAVIRUS COVID-19 NAA NEGATIVE (NEGATIVE)
--- NOTE | 2020-12-23 14:12 | PCM.SN.2 ---
- Free Text/Narrative Note: START OF [facility] HISTORY AND PHYSICAL / CONSULTATION NOTE Chief Complaint: Transfer from rehabilitation center due to active alcohol withdrawal History of Present Illness: The patient is six 5-year-old male who was transferred from the rehabilitation center due to active alcohol withdrawal. The patient is a poor historian. Upon general review of systems he admits to nausea, vomiting, cough, wheeze. He denies fever, rigors, or any other constitutional complaints. He is mildly encephalopathic and has slow mentation. He presents for further evaluation Surgical History: Appendectomy, right shoulder surgery, left wrist surgery, right ankle surgery Family History: Diabetes, hypertension, hyperlipidemia Social History: Tobacco: Former smoker Alcohol: 1 pint of whiskey daily Caffeine: Coffee Drugs: Past marijuana use. Denies any other drug use past or present Allergies: No known drug allergies Code Status: Full Pertinent Laboratory Results / Pertinent Radiology Results / Pertinent Diagnostic Results / Pertinent Vital Signs: Blood pressure 126/65, pulse 9 9, respirations 16, temperature 90.5 degrees, 9 4% room air, sodium 131, creatinine 1.75, total bilirubin is 1.7 AST 117, ALT 87, lipase 425, Physical Examination: General: -Alert and oriented to name and place but not year -No acute distress -No dyspnea -No tachypnea Head: -Atraumatic -Normocephalic Eyes: -Pupils equally round and reactive to light and accommodation -Extraocular muscles intact Neurological: -Cranial nerves II-XII intact Neck: -No jugular venous distention -No thyromegaly -No cervical lymphadenopathy Heart: -Regular rate -Regular rhythm -No murmurs -No gallops -No rubs Lungs: -No wheeze -No rhonchi -No rales Abdomen: -Normal bowel sounds in all four quadrants -No rebound -No guarding -No tenderness Extremities: -2/4 pulse in all four extremities -No clubbing -No cyanosis -No edema -No calf tenderness present bilaterally -Negative Homans sign bilaterally Musculoskeletal: -5/5 bilateral upper extremity strength -5/5 bilateral lower extremity strength -Sensorium of bilateral upper extremities are equal and intact -Sensorium of bilateral lower extremities are equal and intact Additional Details / Additional Findings / Exceptions / Miscellaneous: Assessment / Plan: Alcohol withdrawal. Seizure precautions. IV as needed Ativan per [facility] protocol. History of alcohol abuse. Vitamin B12 1000 g p.o. daily plus thiamine 100 mg p.o. plus folic acid 1 mg p.o. daily plus multivitamin 1 tab p.o. daily Hyponatremia. Will monitor sodium levels intermittently. IV normal saline 100 mL/h Acute renal sufficiency. Monitor creatinine levels intermittently. IV normal saline 100 mL/h Osteoarthritis Overactive bladder BPH Thrombocytopenia, likely sequelae of history of alcohol use. Will monitor platelet count intermittently Seasonal allergies Neuropathy Anemia. Will monitor hemoglobin levels intermittently. Check ferritin, iron panel, fecal occult blood Diabetes. Will check fasting glucose before every meal and at bedtime and provide sulci scale Hyperlipidemia Hypertension Hypomagnesemia. Will monitor magnesium levels intermittently and supplement as necessary Elevated liver function test. Likely sequelae of alcohol use. Will monitor LF Ts periodically with CMP Elevated lipase. Patient demonstrates no signs/symptoms of pancreatitis. Will monitor lipase levels intermittently. NPO. IV normal saline 100 mL/h Urinary tract infection. Rocephin 1 g IV daily. Check PSA DVT prophylaxis. Bilateral CD Disposition: Patient was uncertain of his home medications and his family was well. Patient pending transfer to [facility] in my not care of Dr. Renata JALLOH OF [facility] HISTORY AND PHYSICAL / CONSULTATION NOTE
[2020-12-23] MEDS ORDERED: Sodium Chloride 0.9% 1,000 ML IV SCH (14:15)
--- NOTE | 2020-12-23 14:22 | PCM.SN.2 ---
- Free Text/Narrative Note: START OF DOCTOR [facility] DISCHARGE SUMMARY Date of Admission: December 23, 2020 Date of transfer: 2:20 PM on December 23, 2020 Primary Diagnosis: Alcohol withdrawal Secondary Diagnosis: Alcohol abuse Hyponatremia Acute renal sufficiency Osteoarthritis Overactive bladder BPH Thrombocytopenia, likely sequelae of history of alcohol abuse Seasonal allergies Neuropathy Anemia Diabetes Hyperlipidemia Hypertension Hypomagnesemia Elevated liver function test, likely sequelae of alcohol use Elevated lipase without signs or symptoms of pancreatitis Urinary tract infection Consultations: None Condition on Discharge: Fair Disposition: The patient will be transferred to [facility] care of Dr. Yanez Discharge Medications: Vitamin B12 1000 mcg p.o. daily Folic acid 1 mg p.o. daily Insulin lispro subcutaneously every 6 hours per sliding scale while the patient is n.p.o. for elevated lipase IV as needed Ativan per [facility] protocol Multivitamin 1 tab p.o. daily Thiamine 100 mg p.o. daily Rocephin 1 g IV daily for urinary tract infection Norvasc 10 mg p.o. daily Aspirin 81 mg p.o. daily Finasteride 5 mg p.o. daily Ditropan XL 10 mg p.o. daily END OF DOCTOR [facility] DISCHARGE SUMMARY
[2020-12-23] MEDS ORDERED: Magnesium Sulfate/Water 2 GM in Premix Bag 1 BAG IV ONE (14:30)
[2020-12-23] MEDS ORDERED: LORazepam 2 MG/ML SDV IVPUSH ONE (14:58)
[2020-12-23] MEDS ORDERED: Insulin Lispro 100 Units/ML 3 ML Vial SUBCUT SCH (18:00)
[2020-12-23] MEDS ORDERED: Thiamine 100 MG Tab PO SCH (21:00)
[2020-12-24] MEDS ORDERED: Multivitamins, Therapeutic with Minerals Tab PO SCH (08:00)
[2020-12-24] MEDS ORDERED: cefTRIAXone 1 GM in Sodium Chloride 0.9% 50 ML IV SCH (09:00)
[2020-12-24] MEDS ORDERED: Folic Acid 1 MG Tab PO SCH (09:00)
[2020-12-24] MEDS ORDERED: Cyanocobalamin (Vitamin B12) 1,000 MCG Tab PO SCH (09:00)
== END 2020-12-23 15:10 | DRG 896 ==
LOC: DL.ED 12:45 → DL.MS 12:51 → DL.ED 12:54
PROVIDERS: ADMIT Internal Medicine; ATTEND Internal Medicine
DX: F10.231 Alcohol dependence with withdrawal delirium (principal); G93.41 Metabolic encephalopathy; E87.1 Hypo-osmolality and hyponatremia; N39.0 Urinary tract infection, site not specified; M19.90 Unspecified osteoarthritis, unspecified site; N32.81 Overactive bladder; N40.0 Benign prostatic hyperplasia without lower urinary tract symptoms; D69.6 Thrombocytopenia, unspecified; Z20.822 Contact with and (suspected) exposure to COVID-19; J30.2 Other seasonal allergic rhinitis; E83.42 Hypomagnesemia; I10 Essential (primary) hypertension; E78.5 Hyperlipidemia, unspecified; E11.42 Type 2 diabetes mellitus with diabetic polyneuropathy; R79.89 Other specified abnormal findings of blood chemistry; D64.9 Anemia, unspecified; E78.00 Pure hypercholesterolemia, unspecified; H54.7 Unspecified visual loss; Z90.49 Acquired absence of other specified parts of digestive tract; Z87.891 Personal history of nicotine dependence; Z79.82 Long term (current) use of aspirin; Z79.899 Other long term (current) drug therapy; Z98.890 Other specified postprocedural states; Z28.82 Immunization not carried out because of caregiver refusal
CPT/HCPCS: 0240U; 36415; 82728; 83540; 83550; 99284; 99285; G0103; J2060; J3475; J7030

== ENCOUNTER 2023-05-09 06:39 | Day surgery (SDC) | payer MEDICARE, MEDICAID ==
[2023-05-09] MEDS ORDERED: Dextrose 5%-0.45% NaCl 1,000 ML IV SCH (07:00)
[2023-05-09] MEDS ORDERED: fentaNYL 100 MCG/2 ML SDV ONE (07:10)
[2023-05-09] MEDS ORDERED: Midazolam 1 MG/ML 2 ML SDV ONE (07:10)
[2023-05-09] MEDS ORDERED: fentaNYL 100 MCG/2 ML SDV IV ONE ×3 (07:30→07:40)
[2023-05-09] MEDS ORDERED: Midazolam 1 MG/ML 2 ML SDV IV ONE ×6 (07:31→07:39)
== END 2023-05-09 09:13 | disposition home or self-care (01) ==
LOC: DL.ENDO 06:39
PROVIDERS: ATTEND Internal Medicine Gastroenterology
DX: Z12.11 Encounter for screening for malignant neoplasm of colon (principal); D12.3 Benign neoplasm of transverse colon; K57.30 Diverticulosis of large intestine without perforation or abscess without bleeding; I48.91 Unspecified atrial fibrillation; I12.9 Hypertensive chronic kidney disease with stage 1 through stage 4 chronic kidney disease, or unspecified chronic kidney disease; E11.22 Type 2 diabetes mellitus with diabetic chronic kidney disease; N18.9 Chronic kidney disease, unspecified; E66.09 Other obesity due to excess calories; M19.90 Unspecified osteoarthritis, unspecified site; E78.5 Hyperlipidemia, unspecified; F12.90 Cannabis use, unspecified, uncomplicated; N40.0 Benign prostatic hyperplasia without lower urinary tract symptoms; Z98.890 Other specified postprocedural states; Z68.28 Body mass index [BMI] 28.0-28.9, adult
CPT/HCPCS: 45385; J2250; J3010; J7042

== ENCOUNTER 2024-12-30 17:01 | Emergency (ER) | payer MEDICAID, MEDICARE ==
[2024-12-30] MEDS: Diphtheria,Pertussis(Acell),Tetanus Vaccine 0.5 ML Syringe IM ONE (17:28)
[2024-12-30] MEDS: Lidocaine 1% 5 ML VIAL INJECT ONE (17:28)
[2024-12-30] MEDS: Bacitracin Oint 1 GM U/D Packet TOP ONE (17:29)
[2024-12-30] MEDS: Cephalexin 500 MG Cap PO ONE (18:41)
== END 2024-12-30 18:54 | disposition home or self-care (01) ==
LOC: DL.ED 17:01
DX: S61.210A Laceration without foreign body of right index finger without damage to nail, initial encounter (principal); I10 Essential (primary) hypertension; E78.00 Pure hypercholesterolemia, unspecified; E11.9 Type 2 diabetes mellitus without complications; Z90.49 Acquired absence of other specified parts of digestive tract; Z79.899 Other long term (current) drug therapy; W28.XXXA Contact with powered lawn mower, initial encounter; Z23 Encounter for immunization
CPT/HCPCS: 12001; 73140; 90471; 90715; 99284; A9270; J2003